=== PATIENT | female | born 1970 | race Caucasian/White ===

== ENCOUNTER 2022-09-08 18:07 | Emergency (ER) | payer MEDICAID, OTHER ==
[~2022-09-08] VITALS: Ht 152.4 cm; Wt 68.0 kg
[~2022-09-08 18:07] MED LIST: CIPR-262 PO; DIPH25CA83 PO; MELO-105 PO
[2022-09-08 18:45] VITALS: BP 132/76
--- NOTE | 2022-09-08 20:48 | NUR ---
Patient discharged to home in stable condition. Written and verbal after care instructions given. Patient verbalizes understanding of instruction.
== END 2022-09-08 20:49 | disposition home or self-care (01) ==
LOC: ER 18:10
DX: N81.10 Cystocele, unspecified (principal); Z79.899 Other long term (current) drug therapy